=== PATIENT | female | born 1935 | race Caucasian/White ===

== ENCOUNTER 2016-07-12 10:54 | Inpatient (IN) | payer MEDICARE, OTHER ==
[~2016-07-12] VITALS: Ht 170.2 cm; Wt 51.3 kg
[~2016-07-12 10:54] MED LIST: ALLEGRA-D 1212 HOUR PO; ASPIRIN81 MG OR; AUGMENTIN875 MG OR; CALCIUM500 M6 PO; COUMADIN7.5 MG PO; FERROUS SULF325 M1 PO; FISH OIL1000 MG OR; FLORASTOR250 MG OR; KEFLEX500 M1 PO; LASIX 40 MG40 MG/TAB PO; LIALDA1.2 GM OR; LOMOTIL2.5 MG PO; LOPRESSOR50 MG PO; MULIT-VITAMI OR; MULTAQ400 MG OR; MULTI VIT PO; MULTIVITAMIN OR; NASONEX50 MCG/AC; OS-CAL 500500 MG OR; PATANASE0.6 %; PREDNISONE10 MG OR; PRILOSEC20 MG OR; PRILOSEC20 MG PO; PROPAFENONE225 MG PO; SERTRALINE50 MG PO; SPIRIVA IN; SYMBICORT1 AE1 IN; SYSTANE OP; VITAMIN B-12500 MC2 PO; VITAMIN B-12500 MCG PO; VITAMIN D400 UNI2 OR; VITAMIN D5000 UNIT PO; WALKER XX; XANAX0.25 MG OR; XARELTO20 MG OR
--- NOTE | 2016-07-12 10:54 | NUR ---
PT TO ROOM 14 VIA STRETCHER BY EMS. CALL LIGHT WITHIN REACH.
[2016-07-12 13:12] LABS: HEMATOCRIT 32.5 % (37.0-47.0); HEMOGLOBIN 10.2 g/dl (12.0-16.0); IMMATURE GRANULOCYTES 1.2 % (0.0-1.0); MEAN CELL VOLUME 107.3 fL CALC (80.0-100.0); MEAN CORPUSCULAR HGB 33.7 pG CALC (26.0-32.0); MEAN CORPUSCULAR HGB CONC 31.4 g/L CALC (32.0-36.0); NEUT# 5.19 thou/uL (2.00-7.15); RED BLOOD COUNT 3.03 mill/uL (4.20-5.60); RED CELL DISTRI WIDTH 13.5 % (11.5-15.5)
--- NOTE | 2016-07-12 13:15 | NUR ---
PT WITH IV ESTABLISHED WITH DIFFICULTY, BLOOD DRAWN, URINE COLLECTED FROM UROSTOMY BAG. VISITORS AT BEDSIDE.
[2016-07-12] MEDS ORDERED: ELIQUIS2.5 MG PO (13:22)
[2016-07-12] MEDS ORDERED: AMLODIPINE5 MG PO (13:22)
[2016-07-12] MEDS ORDERED: SPIRIVA HANDIHALER IN (13:23)
[2016-07-12] MEDS ORDERED: ADVAIR DISK1 IN (13:23)
[2016-07-12] MEDS ORDERED: PRESERVISION AREDS PO (13:24)
[2016-07-12] MEDS ORDERED: PERCOCET 5/325M1 TAB PO (13:25)
[2016-07-12] MEDS ORDERED: VOLTAREN3% GEL TOP (13:26)
[2016-07-12 13:33] LABS: ALBUMIN 4.1 g/dL (3.2-5.0); BILIRUBIN, TOTAL 0.7 mg/dL (0.0-1.4); CALCIUM 9.6 mg/dL (8.4-10.2); CREATININE 1.2 mg/dL (0.5-1.0); POTASSIUM 3.8 mmol/l (3.5-5.1); TOTAL PROTEIN 7.9 g/dL (6.3-8.2)
--- NOTE | 2016-07-12 14:28 | NUR ---
SBAR PRINTED TO FLOOR
--- NOTE | 2016-07-12 16:20 | NUR ---
Admission Note Report Given to: SBAR PRINTED TO FLOOR Transported by: Wheelchair X Stretcher Transported with: X Nurse Transporter X Patent IV O2 X Link Assembler
--- NOTE | 2016-07-12 16:30 | NUR ---
FROM ER VIA STRETCHER ACCOMPANIED BY CAREGIVER AND PHILIPPE RN. PT AMBULATED TO BED WITH STEADY GAIT. RESPS EVEN AND UNLABORED ON ROOM AIR, TELE MONITOR IN PLACE. UROSTOMY PATENT, DRAINING CLEAR YELLOW URINE. ORIENTED TO ROOM AND CALL SYSTEM. SAFETY PRECAUTIONS REINFORCED. BED IN LOWEST POSITION WITH WHEELS LOCKED. CALL LIGHT WITHIN REACH. WILL CONTINUE TO MONITOR.
--- NOTE | 2016-07-12 16:40 | NUR ---
DR MCLEAN IN TO SEE PT, NEW ORDERS RECEIVED.
[2016-07-12 17:03] VITALS: BP 166/74
[2016-07-12 19:55] VITALS: BP 108/52
--- NOTE | 2016-07-12 21:20 | NUR ---
PT RESTING IN SEMI FOWLERS POSITION WITH FAMILY AT BEDSIDE;IV SITE TO LEFT FOREARM FLUSHED AND PATENT;TELE MONITOR IN PLACE READING PACED 70;NASAL SWAB COMPLETED FOR RULEOUT HX OF MRSA;CONTACT PRECAUTIONS IN PLACE;UROSTOMY IN PLACE AND HANDING TO GRAVITY;ASSESSMENT COMPLETED;PT RE-ORIENTED TO ROOM AND CALL LIGHT SYSTEM;SAFETY PRECAUTIONS REINFORCED;PT DENIES ANY OTHER NEEDS AT THIS TIME;BED IN LOWEST POSITION WITH CALL LIGHT IN REACH;WILL CONTINUE TO MONITOR
[2016-07-13 00:05] VITALS: BP 122/66
--- NOTE | 2016-07-13 01:00 | NUR ---
PT APPEARS TO BE SLEEPING IN SEMI FOWLERS POSITION;TELE MONITOR IN PLACE;NO S/S OF DISTRESS NOTED;RESPIRATIONS EVEN AND UNLABORED ON RA;BED IN LOWEST POSITION WITH CALL LIGHT IN REACH;WILL CONTINUE TO MONITOR
[2016-07-13 03:40] VITALS: BP 141/71
--- NOTE | 2016-07-13 06:00 | NUR ---
PT RESTING IN SEMI FOWLERS POSITION;PT DENIES ANY PAIN OR DISCOMFORTS;RESPIRATIONS EVEN AND UNLABORED ON RA;IV SITE FOUND OCCULDED AT THIS TIME;SITE REMOVED WITH CATHETER INTACT;NEW #22 STARTED TO LEFT FOREARM BY PRASAD FORD;UROSTOMY NOTED HANGING TO GRAVITY WITH LEG STRAP IN PLACE;TELE MONITOR IN;PT DENIES ANY OTHER NEEDS AT THIS TIME;BED IN LOWEST POSITION WITH CALL LIGHT IN REACH;WILL CONTINUE TO MONITOR
--- NOTE | 2016-07-13 07:00 | NUR ---
RECEIVED BEDSIDE REPORT FROM ARINA DE LA ROSA. RESTING IN BED ON LEFT SIDE WITH EYES CLOSED, AWAKENS EASILY. RESPS EVEN AND UNLABORED ON ROOM AIR, TELE MONITOR IN PLACE. UROSTOMY PATENT, DRAINING CLEAR YELLOW URINE TO BEDSIDE BAG, STRAP TO UPPER RIGHT LEG. DENIES PAIN OR DISCOMFORT. PLAN OF CARE DISCUSSED. SAFETY PRECAUTIONS REINFORCED. BED IN LOWEST POSITION WITH WHEELS LOCKED. CALL LIGHT WITHIN REACH. WILL CONTINUE TO MONITOR.
[2016-07-13 07:01] LABS: HEMATOCRIT 32.5 % (37.0-47.0); HEMOGLOBIN 10.3 g/dl (12.0-16.0); IMMATURE GRANULOCYTES 0.5 % (0.0-1.0); MEAN CELL VOLUME 106.2 fL CALC (80.0-100.0); MEAN CORPUSCULAR HGB 33.7 pG CALC (26.0-32.0); MEAN CORPUSCULAR HGB CONC 31.7 g/L CALC (32.0-36.0); NEUT# 3.47 thou/uL (2.00-7.15); RED BLOOD COUNT 3.06 mill/uL (4.20-5.60); RED CELL DISTRI WIDTH 13.4 % (11.5-15.5)
[2016-07-13 07:24] LABS: CALCIUM 9.6 mg/dL (8.4-10.2); CREATININE 1.4 mg/dL (0.5-1.0); POTASSIUM 3.6 mmol/l (3.5-5.1)
[2016-07-13 08:02] VITALS: BP 128/48
[2016-07-13 12:30] VITALS: BP 125/49
--- NOTE | 2016-07-13 13:19 | NUR ---
SITTING IN BEDSIDE CHAIR. DAUGHTER AT BEDSIDE. RESPS EVEN AND UNLABORED ON ROOM AIR, TELE MONITOR IN PLACE. C/O HEARTBURN, REQUESTS TUMS. MEDICATED WITH MYLANTA FOR RELIEF. CALL LIGHT WITHIN REACH. WILL CONTINUE TO MONITOR.
--- NOTE | 2016-07-13 14:08 | NUR ---
DR MCLEAN IN TO SEE PT, NEW ORDERS RECEIVED.
[2016-07-13] MEDS ORDERED: FLORASTOR250 M1 PO (14:37)
[2016-07-13] MEDS ORDERED: ZITHROMAX500 MG PO (14:37)
[2016-07-13] MEDS ORDERED: PREDNISONE10 MG PO (14:37)
--- NOTE | 2016-07-13 15:55 | NUR ---
Discharge instructions given. Patient verbalizes understanding of same. Discharged in stable condition via Wheelchair to Home with family. All belongings sent with pt.
== END 2016-07-13 15:52 | disposition home or self-care (01) | DRG 192 ==
LOC: ENPENDDIS → ED 10:54 → ED-I 14:00 → ED 14:20 → MS2 14:21
PROVIDERS: Emergency Medicine; ADMIT Internal Medicine; ATTEND Internal Medicine
DX: J44.9 Chronic obstructive pulmonary disease, unspecified (principal); J84.9 Interstitial pulmonary disease, unspecified; I48.91 Unspecified atrial fibrillation; Z93.6 Other artificial openings of urinary tract status; N18.9 Chronic kidney disease, unspecified; M19.90 Unspecified osteoarthritis, unspecified site; Z90.5 Acquired absence of kidney; Z95.0 Presence of cardiac pacemaker; Z85.89 Personal history of malignant neoplasm of other organs and systems; Z87.891 Personal history of nicotine dependence; Z92.21 Personal history of antineoplastic chemotherapy; Z92.3 Personal history of irradiation

== ENCOUNTER 2017-05-14 09:14 | Inpatient (IN) | payer MEDICARE, OTHER ==
[~2017-05-14] VITALS: Ht 172.7 cm; Wt 45.0 kg
[~2017-05-14 09:14] MED LIST changes: +ADVAIR DISK1 IN; +AMLODIPINE5 MG PO; +ELIQUIS2.5 MG PO; +FLORASTOR250 M1 PO; +PERCOCET 5/325M1 TAB PO; +PREDNISONE10 MG PO; +PRESERVISION AREDS PO; +SPIRIVA HANDIHALER IN; +VOLTAREN3% GEL TOP; +ZITHROMAX500 MG PO
--- NOTE | 2017-05-14 09:31 | NUR ---
PT TO ROOM FOR EXAM
--- NOTE | 2017-05-14 09:45 | NUR ---
CRACKLED AUSCULTATED BILATERAL LOWER LOBES OF LUNDS. DENIES ANY HISTORY OF HEART FAILURE.
--- NOTE | 2017-05-14 10:30 | NUR ---
URINE SAMPLE COLLECTED FROM UROSTOMY.
[2017-05-14 10:32] LABS: HEMATOCRIT 33.3 % (37.0-47.0); HEMOGLOBIN 10.4 g/dl (12.0-16.0); IMMATURE GRANULOCYTES 0.4 % (0.0-1.0); MEAN CORPUSCULAR HGB 32.8 pG CALC (26.0-32.0); MEAN CORPUSCULAR HGB CONC 31.2 g/L CALC (32.0-36.0); NEUT# 9.11 thou/uL (2.00-7.15); RED BLOOD COUNT 3.17 mill/uL (4.20-5.60); RED CELL DISTRI WIDTH 14.5 % (11.5-15.5)
[2017-05-14] MEDS ORDERED: LISINOPRIL2.5 MG PO (10:45)
[2017-05-14 10:47] LABS: INTERNATIONAL NORMALIZED RATIO 1.1 RATIO (0.7-1.3); PROTHROMBIN TIME 12.3 SECONDS (9.0-12.5)
[2017-05-14] MEDS ORDERED: XANAX0.5 MG PO (10:48)
[2017-05-14 10:52] LABS: ALBUMIN 4.2 g/dL (3.2-5.0); BILIRUBIN, TOTAL 0.9 mg/dL (0.0-1.4); CREATININE 1.3 mg/dL (0.5-1.0); INFLUENZA A NONE DETECTED (NONE DETECT); INFLUENZA B NONE DETECTED (NONE DETECT); POTASSIUM 2.8 mmol/l (3.5-5.1); TOTAL PROTEIN 7.7 g/dL (6.3-8.2)
[2017-05-14 11:19] LABS: URINE BILIRUBIN - DIPSTICK NEGATIVE (NEGATIVE); URINE BLOOD DIPSTICK NEGATIVE (NEGATIVE); URINE COLOR YELLOW; URINE GLUCOSE - DIPSTICK NEGATIVE (NEGATIVE); URINE KETONE NEGATIVE (NEGATIVE); URINE PH >=9.0 (4.5-8.0); URINE PROTEIN - DIPSTICK 100 mg/dL (NEG-TRACE); URINE SPECIFIC GRAVITY <=1.005; URINE UROBILINOGEN - DIPSTICK 0.2 E.U./dL (0.2)
[2017-05-14 11:20] LABS: URINE LEUK ESTERASE SMALL (NEGATIVE); URINE NITRITE - DIPSTICK POSITIVE (Negative)
[2017-05-14 11:21] LABS: URINE CLARITY CLOUDY
[2017-05-14 11:31] LABS: URINE BACTERIA MANY hpf; URINE SQUAMOUS EPITHELIAL CELL FEW EPI/hpf (0-FEW)
--- NOTE | 2017-05-14 11:35 | NUR ---
ASIA REPORTS HAVING A HISTORY OF C-DIFF.
--- NOTE | 2017-05-14 11:55 | NUR ---
REPORT GIVE TO PRASAD CISNEROS.
--- NOTE | 2017-05-14 12:14 | NUR ---
Admission Note Report Given to: SBAR PRINTED TO FLOOR Transported by: Wheelchair X Stretcher Transported with: X Nurse Transporter X Patent IV O2 Marine Meteorologist
--- NOTE | 2017-05-14 12:16 | NUR ---
PT ARRIVED TO FLOOR VIA STRETCHER ACCOMPANIED BY PRASAD MILLER. PT SITTING IN SEMIFOWLERS POSITION. STATES "DONT I NEED OXYGEN?" O2 SAT 86 % ON RA. O2 @ 2L VIA NC APPLIED TO PT. SAT NOW 92%. PT DENIES USE OF O2 AT HOME. DENIES PAIN. PT ORIENTED TO ROOM AND EQUIPMENT. PT REPORTS VISUAL IMPAIRMENT, LEGALLY BLIND. SIGN PLACED ABOVE BED. STICKERS APPLIED TO CALL LIGHT AND BED CONTROLS TO FACILITATE USE. PLAN OF CARE DISCUSSED. PT EDUCATED ON ABX THERAPY. ATTMEPTED TO CONVERT UROSTOMY BAG TO BEDSIDE DRAINAGE BAG PER PT REQUEST. EQUIPMENT NOT COMPATIBLE. AWAITING CONNECTOR PIECE TO BE BROUGHT BY PT'S [employer]. PT STATES UNDERSTANDING OF INFORAMTION REVIEWED. PT'S SON AT BEDSIDE.
--- NOTE | 2017-05-14 12:25 | NUR ---
PATIENT TRANSPORTED TO [facility] VIA STRETCHER. ZITHROMAX 500 MG GIVEN TO PRASAD CISNEROS AND INFORMED OF NO TELE MONITOR ORDER. CARE RELINQUISHED TO PRASAD CISNEROS.
[2017-05-14 12:49] VITALS: BP 156/68
--- NOTE | 2017-05-14 13:49 | NUR ---
Drug Selected: Vancomycin Age: 82 years Weight: 45 kg Height: 67 in Gender: Female SCR: 1.3 mg/dl Dosing weight: 45 kg IBW: 61.60 kg CRCL (ml/min): 22.9 Adriano (hr-1): 0.023 Half-life (hrs): 30.14 Vd (liters): 31.50 (factor: 0.7 L/kg) Give Vancomycin 750 mg q48 hrs WILL FOLLOW SCR AND ADJUST DOSE ACCORDINGLY ZOSYN DOSED BASED ON CRCL OF 22.9
--- NOTE | 2017-05-14 15:18 | NUR ---
PT REPORTS CHILLS, TEMP 99.6, INCREASED BY 2 POINTS FROM ARRIVAL TO FLOOR. WILL CONTINUE TO MONITOR FOR FEVER.
[2017-05-14 15:50] VITALS: BP 163/67
--- NOTE | 2017-05-14 15:50 | NUR ---
TEMP NOW 100.6. REPORTS SEVERE NECK AND BACK PAIN ALSO. DR. SANFORD NOTIFIED. TORADOL IV X 1 ORDERED.
--- NOTE | 2017-05-14 17:39 | NUR ---
TEMP NOW 98.7. PT REPORTS RELIEF OF NECK AND BACK PAIN. EATING DINNER.
--- NOTE | 2017-05-14 18:50 | NUR ---
RECEIVED CHANGE OF SHIFT REPORT FROM PRASAD CISNEROS. PATIENT LYNG IN BED AND APPEARS TO BE IN NO APPARENT ACUTE DISTRESS. PT'S STATES SHE IS LEGALLY BLIND. DENIES PAIN. WILL CONTIMUE TO MONITOR.
[2017-05-14 20:57] VITALS: BP 129/65
--- NOTE | 2017-05-15 | NUR ---
PATIENT RESTING QUIETLY. NO APPARENT ACUTE DISTRESS NOTED. WILL CONTINUE TO MONITOR.
[2017-05-15 03:45] VITALS: BP 128/71
--- NOTE | 2017-05-15 04:00 | NUR ---
NO APPARENT ACUTE CHANGES NOTED IN PT'S CONDITION
[2017-05-15 05:32] LABS: HEMOGLOBIN 8.3 g/dl (12.0-16.0); IMMATURE GRANULOCYTES 0.4 % (0.0-1.0); MEAN CELL VOLUME 104.4 fL CALC (80.0-100.0); MEAN CORPUSCULAR HGB 33.3 pG CALC (26.0-32.0); MEAN CORPUSCULAR HGB CONC 31.9 g/L CALC (32.0-36.0); NEUT# 6.72 thou/uL (2.00-7.15); RED BLOOD COUNT 2.49 mill/uL (4.20-5.60); RED CELL DISTRI WIDTH 14.2 % (11.5-15.5)
[2017-05-15 06:16] LABS: ALBUMIN 2.7 g/dL (3.2-5.0); BILIRUBIN, TOTAL 0.7 mg/dL (0.0-1.4); CREATININE 1.2 mg/dL (0.5-1.0); TOTAL PROTEIN 5.5 g/dL (6.3-8.2)
--- NOTE | 2017-05-15 07:00 | NUR ---
RECEIVED BEDSIDE REPORT FROM SARAH PARHAM. RESTING IN BED WITH EYES CLOSED, AWAKENS EASILY. RESPS EVEN AND UNLABORED ON O2 VIA NC. REPORTS PAIN 7/10 IN BACK AND NECK, WILL MEDICATE PER JUN. UROSTOMY PATENT, DRAINING LIGHT YELLOW URINE, NO REDNESS OR EDEMA NOTED. PLAN OF CARE DISCUSSED. SAFETY PRECAUTIONS REINFORCED. BED IN LOWEST POSITION WITH WHEELS LOCKED. CALL LIGHT WITHIN REACH. WILL CONTINUE TO MONITOR.
[2017-05-15 07:36] VITALS: BP 127/71
--- NOTE | 2017-05-15 09:55 | NUR ---
RESTING IN HIGH FOWLERS, FAMILY AT BEDSIDE. RESPS EVEN AND UNLABORED ON O2 VIA NC. MEDICATED WITH LORTAB PO FOR C/O 7/10 BACK AND NECK PAIN. REPOSITIONED IN BED FOR COMFORT. CALL LIGHT WITHIN REACH. WILL CONTINUE TO MONITOR.
--- NOTE | 2017-05-15 10:00 | NUR ---
PT ASSESSMENT COMPLETED. PT A&O X3. HEART SOUNDS WERE IRREGULAR. PACEMAKER IN PLACE. LUNG SOUNDS WERE DIMINISHED IN ALL LOBES, SHE SEEMS TO HAVE LITTLE AIR MOVEMENT THROUGHOUT LUNGS. PT IS ON 02 NC @2L, SATS ARE 98% WITH NO DIFFICULTY BREATHING OR SIGNS OF DISTRESS. PULSES WERE STRONG IN EXTREMITIES. SKIN ACYANOTIC, WARM/DRY, WITH NON-ELASTIC TURGOR. PT STATES SHE IS LEGALLY BLIND. PT HAS A UROSTOMY IN LOWER RIGHT QUADRANT. SITE IS FREE OF REDNESS AND EDEMA. PT REPORTS PAIN OF 7/10 IN NECK AND BACK. NURSE MOHAMUD MICHELLE NOTIFIED AND PT WAS MEDICATED.
--- NOTE | 2017-05-15 10:45 | NUR ---
MEDICATED WITH ZOFRAN ODT FOR C/O NAUSEA. FAMILY AT BEDSIDE. WILL CONTINUE TO MONITOR. CALL LIGHT WITHIN REACH.
[2017-05-15 11:45] VITALS: BP 113/63
[2017-05-15 13:19] LABS: CHOLESTEROL HDL RATIO 2.1 (<4.4 (CALC)); MAGNESIUM 1.4 mg/dL (1.6-2.3)
--- NOTE | 2017-05-15 13:38 | NUR ---
Vaccines patient's flu vaccine will be held until their primary infection is cleared.
--- NOTE | 2017-05-15 13:55 | NUR ---
Drug Selected: Vancomycin Age: 82 years Weight: 45 kg Height: 68 in Gender: Female SCR: 1.2 mg/dl Calculated Values: Dosing weight: 45 kg IBW: 63.90 kg CRCL (ml/min): 24.8 Adriano (hr-1): 0.025 Half-life (hrs): 27.73 Vd (liters): 33.75 (factor: 0.75 L/kg) Final Report: Give Vancomycin 500 mg q24 hrs RANDOM LEVEL DRAWN @1200 ON 05/15/17= 6 WE WILL INCREASE THE DOSE TO 500MG Q24H NEXT TROUGH WILL BE 05/17/17 @1400
[2017-05-15 15:18] VITALS: BP 117/65
--- NOTE | 2017-05-15 16:28 | NUR ---
IN SEMI FOWLERS TALKING ON TELEPHONE. RESPS EVEN AND UNLABORED ON O2 VIA NC. #20 LAC INFUSING WITHOUT DIFFICULTY, SITE APPEARS HEALTHY. VOICES NO NEEDS AT THIS TIME. CALL LIGHT WITHIN REACH.
[2017-05-15 18:45] VITALS: BP 123/67
--- NOTE | 2017-05-15 19:10 | NUR ---
REPORT RECEIVED FROM PRASAD MALLORY;PT RESTING IN SUPINE POSITION WATCHING TV;RESPIRATIONS APPEAR EVEN AND UNLABORED ON OXYGEN;INTRODUCED SELF TO PT AND POC DISCUSSED;PT DENIES ANY NEEDS AT THIS TIME;FALL PRECAUTIONS IN PLACE WITH CALL LIGHT IN REACH;WILL CONTINUE TO MONITOR
--- NOTE | 2017-05-15 21:00 | NUR ---
CONTACT PRECAUTIONS IN PLACE FOR HX OF MRSA;PT RESTING IN SEMI FOWLERS POSITION;ASSESSMENT COMPLETED;RESPIRATIONS EVEN AND UNLABORED ON OXYGEN @ 2L VIA NC,PT IS NOTED TO BE HOME DEPENDENT;LUNG SOUNDS DIMINISHED;A&O X3;WEAK PEDAL PULSES;UROSTOMY PATENT WITH PINK STOMA DRAINING CLEAR/YELLOW URINE;#20G TO LAC FLUSHED AND PATENT,SITE APPEARS HEALTHY;SKIN INTACT;FALL PRECAUTIONS IN PLACE WITH BED IN THE LOWEST POSITION;PT DENIES ANY NEEDS AT THIS TIME;ENCOURAGED PT TO CALL FOR ASSISTANCE IF NEEDED;PO FLUIDS ALSO ENCOURAGED;CALL LIGHT IN REACH;WILL CONTINUE TO MONITOR
--- NOTE | 2017-05-16 | NUR ---
PT APPEARS TO BE SLEEPING IN SUPINE POSITION;CONTACT PRECAUTIONS IN PLACE FOR HX OF MRSA;RESPIRATIONS EVEN AND UNLABORED ON 02 @ 2L;FALL PRECAUTIONS IN PLACE WITH BED IN THE LOWEST POSITION;CALL LIGHT IN REACH;WILL CONTINUE TO MONITOR
--- NOTE | 2017-05-16 03:50 | NUR ---
PT RESTING IN SUPINE POSITION THIS MORNING;PT REPORTS A GOOD NIGHTS SLEEP;RESPIRATIONS EVEN AND UNLABORED ON 02 @ 2L;PT DENIES ANY PAIN OR DISCOMFORTS;CONTACT PRECAUTIONS IN PLACE;FALL PRECAUTIONS NOTED WITH CALL LIGHT IN REACH;FRESH WATER PROVIDED;CALL LIGHT IN REACH;WILL CONTINUE TO MONITOR
[2017-05-16 04:45] VITALS: BP 124/65
[2017-05-16 05:24] LABS: HEMATOCRIT 27.3 % (37.0-47.0); HEMOGLOBIN 8.6 g/dl (12.0-16.0); IMMATURE GRANULOCYTES 0.5 % (0.0-1.0); MEAN CELL VOLUME 104.2 fL CALC (80.0-100.0); MEAN CORPUSCULAR HGB 32.8 pG CALC (26.0-32.0); MEAN CORPUSCULAR HGB CONC 31.5 g/L CALC (32.0-36.0); NEUT# 5.63 thou/uL (2.00-7.15); RED BLOOD COUNT 2.62 mill/uL (4.20-5.60); RED CELL DISTRI WIDTH 13.8 % (11.5-15.5)
[2017-05-16 05:53] LABS: CREATININE 1.2 mg/dL (0.5-1.0); MAGNESIUM 1.6 mg/dL (1.6-2.3); POTASSIUM 3.7 mmol/l (3.5-5.1)
--- NOTE | 2017-05-16 07:00 | NUR ---
RECEIVED BEDSIDE REPORT FROM ARINA DE LA ROSA. RESTING IN BED WITH EYES CLOSED, AWAKENS EASILY. RESPS EVEN AND UNLABORED ON O2 VIA NC. DEBIES PAIN OR DISCOMFORT. PLAN OF CARE DISCUSSED. SAFETY PRECAUTIONS REINFORCED. BED IN LOWEST POSITION WITH WHEELS LOCKED. CALL LIGHT WITHIN REACH. WILL CONTINUE TO MONITOR.
[2017-05-16 08:45] VITALS: BP 125/57
--- NOTE | 2017-05-16 10:26 | NUR ---
MEDICATED WITH ZOFRAN ODT FOR C/O NAUSEA.
--- NOTE | 2017-05-16 12:00 | NUR ---
IN HIGH FOWLERS EATING LUNCH. SON AT BEDSIDE. RESPS EVEN AND UNLABORED ON O2 VIA NC. DENIES PAIN OR DISCOMFORT. CALL LIGHT WITHIN REACH. WILL CONTINUE TO MONITOR.
--- NOTE | 2017-05-16 14:00 | NUR ---
PHYSICAL THERAPY IN WITH PT.
--- NOTE | 2017-05-16 14:36 | NUR ---
OCCUPATIONAL THERAPY IN WITH PT.
[2017-05-16 15:39] VITALS: BP 139/65
--- NOTE | 2017-05-16 16:00 | NUR ---
RESTING IN SEMI FOWLERS, RESPS EVEN AND UNLABORED ON O2 VIA NC. #20 LAC INFUSING WITHOUT DIFFICULTY, SITE APPEARS HEALTHY. UROSTOMY PATENT DRAINING TARYN COLORED URINE TO GRAVITY, NO RENESS OR EDEMA NOTED. VOICES NO NEEDS AT THIS TIME. CALL LIGHT WIHTIN REACH. WILL CONTINUE TO MONITOR.
[2017-05-16 19:15] VITALS: BP 133/68
--- NOTE | 2017-05-16 19:15 | NUR ---
REPORT RECEIVED FROM PRASAD MALLORY;PT RESTING IN SUPIN POSITION;CONTACT PRECAUTIONS IN PLACE FOR MRSA;INTRODUCED SELF TO PT AND POC DISCUSSED;PT DENIES ANY NEEDS AT THIS TIME;SAFETY PRECAUTIONS REINFORCED;CALL LIGHT IN REACH;WILL CONTINUE TO MONITOR
--- NOTE | 2017-05-16 20:15 | NUR ---
PT RESTING IN SEMI FOWLERS POSITION WATCHING TV;A&OX3;ASSESSMENT COMPLETED;RESPIRATIONS EVEN AND UNLABORED ON O2 @ 2L VIA NC,DIMINISHED LUNG SOUNDS NOTED;ABDOMEN SOFT UPON PALPATION;WEAK PEDAL PULSES NOTED WITH HEEL PROTECTORS IN PLACE;UROSTOMY PATENT WITH PINK STOMA DRAINING CLOUDY/YELLOW URINE;#20G TO LAC FLUSHED AND PATENT;GENERALIZED BRUISING NOTED THROUGHOUT BODY;LAST BM 05/11/17,GLYCERNIN SUP GIVEN AT THIS TIME;PT DENIES ANY PAIN OR NEEDS;SAFETY PRECAUTIONS REINFORCED WITH BED IN THE LOWEST POSITION;CALL LIGHT IN REACH;WILL CONTINUE TO MONITOR
--- NOTE | 2017-05-16 22:00 | NUR ---
PT HAD A SMALL/LIQUID BROWN BM,SAMPLE SENT TO LAB AT THIS TIME
--- NOTE | 2017-05-16 23:50 | NUR ---
PT APPEARS TO BE SLEEPING IN SUPINE POSITION;WOKE PT TO ADMINISTER SCHEDULED MEDICATION;IV SITE TO LAC FOUND OCCLUDED;SITE REMOVED WITH CATHETER INTACT;NEW #22G STARTED TO RIGHT FOREARM, FLUSHED AND PATENT;PT DENIES ANY NEEDS AT THIS TIME;FRESH WATER PROVIDED;FALL PRECAUTIONS IN PLACE WITH CALL LIGHT IN REACH;WILL CONTINUE TO MONITOR
--- NOTE | 2017-05-17 04:15 | NUR ---
PT APPEARS TO BE SLEEPING IN SEMI FOWLERS POSITION;NO S/S OF DISTRESS NOTED;RESPIRATIONS EVEN AND UNLABORED ON 02 @ 2L VIA NC;CONTACT AND FALL PRECAUTIONS IN PLACE;BED IN THE LOWEST POSITION WITH CALL LIGHT IN REACH;WILL CONTINUE TO MONITOR
[2017-05-17 04:29] VITALS: BP 139/77
--- NOTE | 2017-05-17 08:05 | NUR ---
ASSESSMENT IS COMPLETED: IV SITE IS FREE FROM REDNESS OR EDEMA. O2 @ 2LITERS WITH NC. CARTWRIGHT DRAINING CLEAR YELLOW URINE. BREATH SOUNDS ARE DIMINSHED. AND CLEAR. CONTINUE TO OSBERVE AND MONITOR.
[2017-05-17 08:31] VITALS: BP 153/83
--- NOTE | 2017-05-17 10:00 | NUR ---
PT REFUSED PHYSICAL THERAPY. STATES THAT SHE ONLY WANTED TO STAY IN BED AND REST.
--- NOTE | 2017-05-17 10:35 | NUR ---
PT REPORTS NAUSEA. ZOFRAN PO ADMINISTERED PER ORDER. WILL CONTINUE TO MONITOR.
[2017-05-17] MEDS ORDERED: COLACE100 MG PO (11:05)
[2017-05-17] MEDS ORDERED: MIRALAX3350 N1 PO (11:11)
[2017-05-17 11:47] LABS: HEMATOCRIT 31.3 % (37.0-47.0); HEMOGLOBIN 9.8 g/dl (12.0-16.0); MEAN CELL VOLUME 106.1 fL CALC (80.0-100.0); MEAN CORPUSCULAR HGB 33.2 pG CALC (26.0-32.0); MEAN CORPUSCULAR HGB CONC 31.3 g/L CALC (32.0-36.0); RED BLOOD COUNT 2.95 mill/uL (4.20-5.60)
[2017-05-17 12:07] LABS: CREATININE 1.2 mg/dL (0.5-1.0); POTASSIUM 3.8 mmol/l (3.5-5.1)
--- NOTE | 2017-05-17 12:30 | NUR ---
PT HAS BEEN RELAXING IN BED WITH NO DISTRESS NOTED. IV SITE IS FREE FROM REDNESS OR EDEMA. CONTINUE TO OSBERVE AND MONITOR.
--- NOTE | 2017-05-17 15:19 | NUR ---
Vancomycin consult Weight: 45 Kilograms Vancomycin single level analysis: Current dose being given: 500 mg Current dosing interval: 24 hrs Current infusion time (hrs): 2 Single level Trough Data: Trough level obtained: 9 mcg/ml Timing of trough - Number of hours before next dose: 0.5 Hrs Estimated PK Parameters: New rate constant (osmany): 0.043 hr-1 New half-life: 16.12 Hours New Vd from levels: 31.50 Liters (0.7 L/kg) Give Vancomycin 750 mg Q24H Infuse over 2 hrs Expected Cpeak: 35 mcg/ml Expected Ctrough: 15 mcg/ml
--- NOTE | 2017-05-17 15:41 | NUR ---
Josiah lindquist'clarence O.T. treatment and O.T. maintained contact precautions and instructed patient in UE HEP strengthening program. Patient declined sitting up or getting out of bed with max encouragement and reported "having a lot on my mind." Patient did not verbalize what was on her mind and O.T. offered support. Patient demonstrated UE HEP with supervision bed level. Patient agreed for O.T. treatment tomorrow.
[2017-05-17 15:45] VITALS: BP 138/72
--- NOTE | 2017-05-17 16:09 | NUR ---
PT IS WORKING WITH OT IN THE BED. NO DISTRESS NOTED. IV SITE IS FREE FROM REDNESS OR EDEMA.CONTINUE TO OBSERVE AND MONITOR.
--- NOTE | 2017-05-17 19:15 | NUR ---
REPORT RECEIVED FROM RJ RICHARDS;PT APPEARS TO BE SLEEPING IN SEMI FOWLERS POSITION;NO S/S OF DISTRESS NOTED;FALL PRECAUTIONS IN PLACE WITH BED IN THE LOWEST POSITION;CALL LIGHT IN REACH;WILL CONTINUE TO MONITOR
[2017-05-17 20:00] VITALS: BP 135/69
--- NOTE | 2017-05-17 21:10 | NUR ---
PT RESTING IN BED WATCHING TV;CONTACT PRECAUTIONS IN PLACE FOR MRSA;A&O X3;ASSESSMENT COMPLETED;RESPIRATIONS EVEN AND UNLABORED ON 02 @ 2L VIA NC;DIMINISHED LUNG SOUNDS;PT REPORTS FEELING BETTER TODAY AND NOT REQUIRING HER O2 MUCH;ABDOMEN SOFT;STRONG PEDAL PULSES;UROSTOMY PATENT WITH PINK STOMA DRAINING CLOUDY/YELLOW URINE;SKIN INTACT;#22G TO RIGHT FOREARM FLUSHED AND PATENT;WARM PRUNE JUICE PROVIDED;PT DENIES ANY PAIN OR NEEDS AT THIS TIME;SAFETY PRECAUTIONS REINFORCED;PT ENCOURAGED TO CALL FOR ASSISTANCE IF NEEDED;CALL LIGHT IN REACH;WILL CONTINUE TO MONITOR
--- NOTE | 2017-05-18 00:30 | NUR ---
PT APPEARS TO BE SLEEPING WITH EYES CLOSED;WOKE PT TO ADMINISTER SCHEDULED MEDICATION;PT VOICES NO COMPLAINTS OF PAIN;RESPIRATIONS EVEN AND UNLABORED ON OXYGEN;FALL PRECAUTIONS IN PLACE;CALL LIGHT IN REACH;WILL CONTINUE TO MONITOR
[2017-05-18 04:48] VITALS: BP 142/70
[2017-05-18 04:56] LABS: HEMATOCRIT 27.5 % (37.0-47.0); HEMOGLOBIN 8.4 g/dl (12.0-16.0); IMMATURE GRANULOCYTES 0.5 % (0.0-1.0); MEAN CELL VOLUME 105.8 fL CALC (80.0-100.0); MEAN CORPUSCULAR HGB 32.3 pG CALC (26.0-32.0); MEAN CORPUSCULAR HGB CONC 30.5 g/L CALC (32.0-36.0); NEUT# 6.39 thou/uL (2.00-7.15); RED BLOOD COUNT 2.6 mill/uL (4.20-5.60); RED CELL DISTRI WIDTH 14.1 % (11.5-15.5)
--- NOTE | 2017-05-18 05:00 | NUR ---
PT RESTING IN BED REPORTING BM;UPON ASSESSMENT PT HAD A VERY LARGE/BROWN LOOSE BM;TL CARE PROVIDED;VS OBTAINED;RESPIRATIONS EVEN AND UNLABORED ON RA;PT ENCOURAGED TO CALL FOR ASSISTANCE IF NEEDED;FALL PRECAUTIONS IN PLACE;WILL CONTINUE TO MONITOR
[2017-05-18 05:09] LABS: CREATININE 1.3 mg/dL (0.5-1.0); MAGNESIUM 1.7 mg/dL (1.6-2.3); POTASSIUM 3.8 mmol/l (3.5-5.1)
[2017-05-18 08:36] VITALS: BP 152/68
--- NOTE | 2017-05-18 08:37 | NUR ---
PHYSICAL THERAPY IN WITH PT;
--- NOTE | 2017-05-18 09:19 | NUR ---
Patient found resting in bed, explained treatment plan and in agreement to paticipate in functional activities of transfer training. Patient provided with pericare prior to treatment by FLEET SERVICE CLERK. Gait belt and footwear applied prior to transfers. Patient transfered supine to side ly to sit using bedrails to assist and supervision. Good static sitting balance noted. Intructed patient on use of UE's for push off from bed to come to stand to rollator of which she proceeded to do so with light CGA x1. Verbal cues followed with 100% accuracy. 2-3 steps taken with rollator and CGA x1 to BSC. Good safety awareness with stand to sit onto BSC and sit to stand from BSC. Patient again took took 3 steps with rollator and light CGA x1 to recliner, recalling to use UE's to slowly lower onto recliner. LE's were elevated, pillows provided for comfort, call light was reviewed of which pt. returned proper use of. Bedside table also left within reach, patient without questions and without concerns after treatment. Nurse informed.
--- NOTE | 2017-05-18 10:26 | NUR ---
DR. MCLEAN IN TO SEE PT; PLAN OF CARE DISCUSSED
[2017-05-18] MEDS ORDERED: FLORASTOR250 M1 PO (13:02)
[2017-05-18] MEDS ORDERED: SUCRALFATE1 GM/10 ML PO (13:02)
[2017-05-18] MEDS ORDERED: AUGMENTIN875TAB PO (13:02)
[2017-05-18] MEDS ORDERED: DOXYCYCL HYC100 MG PO (13:02)
[2017-05-18] MEDS ORDERED: PANTOPRAZOLE SO40 M1 PO (13:02)
[2017-05-18] MEDS ORDERED: TRAMADOL HCL50 MG PO (13:02)
--- NOTE | 2017-05-18 13:04 | NUR ---
PT MEDICATED FOR C/O NECK PAIN AND BACK PAIN 10/24; CALL DUNCAN WITHIN REACH; WILL CONTINUE TO MONITOR.
[2017-05-18] MEDS ORDERED: PREDNISONE10 MG PO (13:05)
--- NOTE | 2017-05-18 15:38 | NUR ---
Attempted to treat patient at 3:30 p.m., however, Josiah Hayden in with patient Discharging her and patient verbalized did not need treatment prior to D/C home.
--- NOTE | 2017-05-18 15:42 | NUR ---
Discharge instructions given. Patient verbalizes understanding of same. Discharged in stable condition via Wheelchair to Home with family. All belongings sent with pt.
== END 2017-05-18 15:30 | DRG 871 ==
LOC: ED 09:14 → ED-I 11:15 → ED 11:34 → MS2 11:35
PROVIDERS: Emergency Medicine; Nurse Practitioner Family; ADMIT Internal Medicine; ATTEND Internal Medicine
DX: A41.9 Sepsis, unspecified organism (principal); E43 Unspecified severe protein-calorie malnutrition; J18.9 Pneumonia, unspecified organism; N17.9 Acute kidney failure, unspecified; J44.0 Chronic obstructive pulmonary disease with (acute) lower respiratory infection; I48.2 Chronic atrial fibrillation; D53.1 Other megaloblastic anemias, not elsewhere classified; N39.0 Urinary tract infection, site not specified; Z68.1 Body mass index [BMI] 19.9 or less, adult; N99.521 Infection of incontinent external stoma of urinary tract; R65.20 Severe sepsis without septic shock; Z99.81 Dependence on supplemental oxygen; I12.9 Hypertensive chronic kidney disease with stage 1 through stage 4 chronic kidney disease, or unspecified chronic kidney disease; N18.3 Chronic kidney disease, stage 3 (moderate); M19.90 Unspecified osteoarthritis, unspecified site; K21.9 Gastro-esophageal reflux disease without esophagitis; M79.7 Fibromyalgia; F32.9 Major depressive disorder, single episode, unspecified; E87.6 Hypokalemia; R19.7 Diarrhea, unspecified; K56.41 Fecal impaction; B96.4 Proteus (mirabilis) (morganii) as the cause of diseases classified elsewhere; Z85.42 Personal history of malignant neoplasm of other parts of uterus; Z95.0 Presence of cardiac pacemaker; Z92.3 Personal history of irradiation; Z87.891 Personal history of nicotine dependence; Z79.01 Long term (current) use of anticoagulants; Z22.322 Carrier or suspected carrier of Methicillin resistant Staphylococcus aureus; Y83.3 Surgical operation with formation of external stoma as the cause of abnormal reaction of the patient, or of later complication, without mention of misadventure at the time of the procedure
CPT/HCPCS: J3370; S0164

== ENCOUNTER 2018-05-23 18:56 | Inpatient (IN) | payer MEDICARE, OTHER ==
[~2018-05-23] VITALS: Ht 170.2 cm; Wt 44.0 kg
[~2018-05-23 18:56] MED LIST changes: +AUGMENTIN875TAB PO; +COLACE100 MG PO; +DOXYCYCL HYC100 MG PO; +LISINOPRIL2.5 MG PO; +MIRALAX3350 N1 PO; +PANTOPRAZOLE SO40 M1 PO; +SUCRALFATE1 GM/10 ML PO; +TRAMADOL HCL50 MG PO; +XANAX0.5 MG PO
[2018-05-23 20:14] LABS: IMMATURE GRANULOCYTES 0.4 % (0.0-5.0); MEAN CELL VOLUME 105.9 fL CALC (80.0-100.0); MEAN CORPUSCULAR HGB 33.8 pG CALC (26.0-32.0); MEAN CORPUSCULAR HGB CONC 31.9 g/L CALC (32.0-36.0); NEUT# 7.96 thou/uL (2.00-7.15); RED BLOOD COUNT 3.37 mill/uL (4.20-5.60); RED CELL DISTRI WIDTH 13.1 % (11.5-15.5)
[2018-05-23 20:16] LABS: HEMATOCRIT 35.7 % (37.0-47.0); HEMOGLOBIN 11.4 g/dl (12.0-16.0)
[2018-05-23 20:27] LABS: ALKALINE PHOSPHATASE 142 u/l (38-126); BILIRUBIN, TOTAL 0.7 mg/dL (0.0-1.4); BUN 18 mg/dL (8-23); BUN/CREATININE RATIO 20 (12-20 (CALC)); CARBON DIOXIDE 31 mmol/l (22-30); CREATININE 0.9 mg/dL (0.5-1.0); GFR 60 ML/MIN (>=60 (CALC)); GFR FOR AFR.AMER. > 60 ML/MIN (>=60 (CALC)); POTASSIUM 4.5 mmol/l (3.5-5.1); SGOT/AST 37 u/l (9-36)
[2018-05-23 20:29] LABS: ANION GAP 15 (6-22 (CALC))
[2018-05-23 20:30] LABS: ALBUMIN 3.4 g/dL (3.2-5.0); CHLORIDE 93 mmol/l (95-108); SODIUM 134 mmol/l (137-146); TOTAL PROTEIN 6.8 g/dL (6.3-8.2)
[2018-05-23 20:36] LABS: INTERNATIONAL NORMALIZED RATIO 1.1 RATIO (0.7-1.3); PROTHROMBIN TIME 11.7 SECONDS (9.0-12.5)
[2018-05-23 20:39] LABS: MYOGLOBIN 52 ng/mL (0 - 62)
[2018-05-23 21:51] LABS: URINE BILIRUBIN - DIPSTICK NEGATIVE (NEGATIVE); URINE BLOOD DIPSTICK NEGATIVE (NEGATIVE); URINE COLOR YELLOW; URINE GLUCOSE - DIPSTICK NEGATIVE (NEGATIVE); URINE KETONE NEGATIVE (NEGATIVE); URINE LEUK ESTERASE NEGATIVE (NEGATIVE); URINE NITRITE - DIPSTICK NEGATIVE (Negative); URINE PROTEIN - DIPSTICK NEGATIVE (NEG-TRACE); URINE UROBILINOGEN - DIPSTICK 0.2 E.U./dL (0.2)
[2018-05-23] MEDS ORDERED: PREDNISONE5 MG PO (23:05)
[2018-05-23] MEDS ORDERED: PRESERVISION PO (23:07)
[2018-05-23] MEDS ORDERED: LYRICA50 MG PO (23:10)
[2018-05-23] MEDS ORDERED: NORCO1 TA1 PO (23:10)
[2018-05-23] MEDS ORDERED: TIZANIDINE HCL2 M1 PO (23:11)
[2018-05-24 01:50] VITALS: BP 124/63
[2018-05-24 04:19] VITALS: BP 121/66
[2018-05-24 09:23] VITALS: BP 140/63
[2018-05-24 11:15] LABS: HEMATOCRIT 30.9 % (37.0-47.0); HEMOGLOBIN 9.5 g/dl (12.0-16.0); IMMATURE GRANULOCYTES 0.4 % (0.0-5.0); MEAN CELL VOLUME 107.7 fL CALC (80.0-100.0); MEAN CORPUSCULAR HGB 33.1 pG CALC (26.0-32.0); MEAN CORPUSCULAR HGB CONC 30.7 g/L CALC (32.0-36.0); NEUT# 6.85 thou/uL (2.00-7.15); RED BLOOD COUNT 2.87 mill/uL (4.20-5.60); RED CELL DISTRI WIDTH 13.2 % (11.5-15.5)
[2018-05-24 11:37] LABS: ANION GAP 10 (6-22 (CALC)); BUN 16 mg/dL (8-23); BUN/CREATININE RATIO 18 (12-20 (CALC)); CARBON DIOXIDE 31 mmol/l (22-30); CHLORIDE 98 mmol/l (95-108); CREATININE 0.9 mg/dL (0.5-1.0); GFR 60 ML/MIN (>=60 (CALC)); GFR FOR AFR.AMER. > 60 ML/MIN (>=60 (CALC)); POTASSIUM 4.2 mmol/l (3.5-5.1); SODIUM 134 mmol/l (137-146)
[2018-05-24 17:00] VITALS: BP 130/60
[2018-05-24 19:20] VITALS: BP 129/58
[2018-05-24 23:35] VITALS: BP 151/71
[2018-05-25] VITALS (7 sets, daily range): BP systolic 147–177; BP diastolic 67–88
[2018-05-25 05:46] LABS: HEMATOCRIT 35.6 % (37.0-47.0); IMMATURE GRANULOCYTES 0.5 % (0.0-5.0); MEAN CELL VOLUME 109.5 fL CALC (80.0-100.0); MEAN CORPUSCULAR HGB 33.8 pG CALC (26.0-32.0); MEAN CORPUSCULAR HGB CONC 30.9 g/L CALC (32.0-36.0); NEUT# 8.31 thou/uL (2.00-7.15); RED BLOOD COUNT 3.25 mill/uL (4.20-5.60); RED CELL DISTRI WIDTH 13.2 % (11.5-15.5)
[2018-05-25 06:09] LABS: ALBUMIN 2.9 g/dL (3.2-5.0); ALKALINE PHOSPHATASE 127 u/l (38-126); AMYLASE 63 u/l (30-110); BILIRUBIN, TOTAL 0.3 mg/dL (0.0-1.4); BUN 15 mg/dL (8-23); BUN/CREATININE RATIO 17 (12-20 (CALC)); CARBON DIOXIDE 29 mmol/l (22-30); CREATININE 0.9 mg/dL (0.5-1.0); GFR 60 ML/MIN (>=60 (CALC)); GFR FOR AFR.AMER. > 60 ML/MIN (>=60 (CALC)); LIPASE 106 u/l (23-300); MAGNESIUM 1.8 mg/dL (1.6-2.3); POTASSIUM 4.6 mmol/l (3.5-5.1); SGOT/AST 31 u/l (9-36); SODIUM 136 mmol/l (137-146); TOTAL PROTEIN 5.9 g/dL (6.3-8.2)
[2018-05-25 06:11] LABS: ANION GAP 13 (6-22 (CALC)); CHLORIDE 99 mmol/l (95-108)
[2018-05-26 03:50] VITALS: BP 154/78
[2018-05-26 05:11] LABS: HEMOGLOBIN 10.1 g/dl (12.0-16.0); IMMATURE GRANULOCYTES 0.4 % (0.0-5.0); MEAN CELL VOLUME 109.6 fL CALC (80.0-100.0); MEAN CORPUSCULAR HGB 33.6 pG CALC (26.0-32.0); MEAN CORPUSCULAR HGB CONC 30.6 g/L CALC (32.0-36.0); NEUT# 6.33 thou/uL (2.00-7.15); RED BLOOD COUNT 3.01 mill/uL (4.20-5.60); RED CELL DISTRI WIDTH 13.3 % (11.5-15.5)
[2018-05-26 05:32] LABS: ALBUMIN 2.6 g/dL (3.2-5.0); ALKALINE PHOSPHATASE 116 u/l (38-126); ANION GAP 12 (6-22 (CALC)); BILIRUBIN, TOTAL 0.3 mg/dL (0.0-1.4); BUN 14 mg/dL (8-23); BUN/CREATININE RATIO 17 (12-20 (CALC)); CARBON DIOXIDE 30 mmol/l (22-30); CHLORIDE 100 mmol/l (95-108); CREATININE 0.8 mg/dL (0.5-1.0); GFR > 60 ML/MIN (>=60 (CALC)); GFR FOR AFR.AMER. > 60 ML/MIN (>=60 (CALC)); MAGNESIUM 1.8 mg/dL (1.6-2.3); POTASSIUM 4.1 mmol/l (3.5-5.1); SGOT/AST 31 u/l (9-36); SODIUM 138 mmol/l (137-146); TOTAL PROTEIN 5.5 g/dL (6.3-8.2)
[2018-05-26 08:59] VITALS: BP 135/65
[2018-05-26 11:00] VITALS: BP 166/76
[2018-05-26 15:15] VITALS: BP 153/67
[2018-05-26 19:10] VITALS: BP 110/56
[2018-05-26 23:35] VITALS: BP 154/72
[2018-05-27 04:15] VITALS: BP 150/78
[2018-05-27 09:04] VITALS: BP 142/65
[2018-05-27 11:13] VITALS: BP 145/62
[2018-05-27 15:24] VITALS: BP 149/60
[2018-05-27 19:13] VITALS: BP 137/69
[2018-05-28 04:36] VITALS: BP 154/71
[2018-05-28 08:49] VITALS: BP 161/59
[2018-05-28 11:19] VITALS: BP 157/75
[2018-05-28 15:30] VITALS: BP 129/68
[2018-05-28 20:45] VITALS: BP 127/56
[2018-05-28 23:45] VITALS: BP 157/70
[2018-05-29 04:30] VITALS: BP 150/79
[2018-05-29 09:26] VITALS: BP 141/52
[2018-05-29 11:40] VITALS: BP 153/62
[2018-05-29] MEDS ORDERED: DOXYCYCL HYC100 MG PO (14:04)
== END 2018-05-29 16:04 | disposition home health service (06) | DRG 193 ==
LOC: ED 18:56 → ED-I 05-24 → ED 05-24 00:29 → MS2 05-24 00:30
PROVIDERS: Emergency Medicine; ADMIT Internal Medicine Nephrology; ATTEND Internal Medicine Nephrology
DX: J18.9 Pneumonia, unspecified organism (principal); E43 Unspecified severe protein-calorie malnutrition; J44.1 Chronic obstructive pulmonary disease with (acute) exacerbation; Z68.1 Body mass index [BMI] 19.9 or less, adult; J44.0 Chronic obstructive pulmonary disease with (acute) lower respiratory infection; I10 Essential (primary) hypertension; I48.2 Chronic atrial fibrillation; F17.210 Nicotine dependence, cigarettes, uncomplicated; K21.9 Gastro-esophageal reflux disease without esophagitis; M19.90 Unspecified osteoarthritis, unspecified site; G62.9 Polyneuropathy, unspecified; F41.8 Other specified anxiety disorders; E55.9 Vitamin D deficiency, unspecified; M48.54XD Collapsed vertebra, not elsewhere classified, thoracic region, subsequent encounter for fracture with routine healing; K08.409 Partial loss of teeth, unspecified cause, unspecified class; Z95.0 Presence of cardiac pacemaker; Z79.01 Long term (current) use of anticoagulants; Z79.891 Long term (current) use of opiate analgesic; Z85.528 Personal history of other malignant neoplasm of kidney; Z88.8 Allergy status to other drugs, medicaments and biological substances
CPT/HCPCS: J3370

== ENCOUNTER 2018-05-30 16:17 | Inpatient (IN) | payer MEDICARE, OTHER ==
[~2018-05-30] VITALS: Ht 170.2 cm; Wt 47.0 kg
[~2018-05-30 16:17] MED LIST changes: +LYRICA50 MG PO; +NORCO1 TA1 PO; +PREDNISONE5 MG PO; +PRESERVISION PO; +TIZANIDINE HCL2 M1 PO
--- NOTE | 2018-05-30 16:17 | NUR ---
PT IMMEDIATELY TO TX ROOM VIA WC FOR BEDISIDE TRIAGE
--- NOTE | 2018-05-30 16:20 | NUR ---
PATIENT REPORTS SOB STARTING TODAY, WAS DISCHARGED FROM HOSPITAL ON 05/29/18 WAS TREATED FOR PNEUMONIA, STATES SWELLING TO BILATERAL HANDS AND FEET SINCE BEING IN HOSPITAL. CRACKLES NOTED TO RIGHT LUNG, CLEAR LUNG SOUNDS NOTED TO LEFT LUNG. RT PAGED FOR BREATHING TREATMENT FOR O2 SAT OF 90% ON ROOM AIR. DENIES BEING ON HOME O2, DOES TAKE BREATHING TREATMENTS AT HOME, TOOK ONE EARLIER TODAY. SON AT BEDSIDE.
--- NOTE | 2018-05-30 17:00 | NUR ---
MOD AMOUNT OF EDEMA NOTED TO BILATERAL FEET. NO CHANGE IN LUNG SOUNDS AFTER BREATHING TREATMENT. PATIENT REPORTS IMPROVEMENT IN BREATHING.
[2018-05-30 17:11] LABS: HEMATOCRIT 37.1 % (37.0-47.0); HEMOGLOBIN 11.5 g/dl (12.0-16.0); IMMATURE GRANULOCYTES 0.5 % (0.0-5.0); MEAN CELL VOLUME 107.8 fL CALC (80.0-100.0); MEAN CORPUSCULAR HGB 33.4 pG CALC (26.0-32.0); NEUT# 8.92 thou/uL (2.00-7.15); RED BLOOD COUNT 3.44 mill/uL (4.20-5.60); RED CELL DISTRI WIDTH 13.5 % (11.5-15.5)
[2018-05-30 17:30] LABS: ALBUMIN 3.7 g/dL (3.2-5.0); ALKALINE PHOSPHATASE 121 u/l (38-126); ANION GAP 13 (6-22 (CALC)); BILIRUBIN, TOTAL 0.4 mg/dL (0.0-1.4); BUN 33 mg/dL (8-23); BUN/CREATININE RATIO 34 (12-20 (CALC)); CARBON DIOXIDE 32 mmol/l (22-30); CHLORIDE 95 mmol/l (95-108); GFR 53 ML/MIN (>=60 (CALC)); GFR FOR AFR.AMER. > 60 ML/MIN (>=60 (CALC)); POTASSIUM 4.2 mmol/l (3.5-5.1); SGOT/AST 51 u/l (9-36); SODIUM 136 mmol/l (137-146)
--- NOTE | 2018-05-30 17:57 | NUR ---
INFORMED OF PATIENT O2 SAT OF 89% ON ROOM AIR. RT PAGED FOR ABG AND ADDITIONAL BREATHING TREATMENT.
--- NOTE | 2018-05-30 18:51 | NUR ---
REPORT CALLED TO PRASAD BAILON. INFORMED OF PATIENT STATUS, WAITING ON FLOOR ORDERS. REPORT GIVEN TO PRASAD GALINDO. CARE RELINQUISHED. PATIENT IN STABLE CONDIITON.
--- NOTE | 2018-05-30 19:38 | NUR ---
PT TRANSPORTED TO [place] VIA STRETCHER BY NURSE FANTA IN STABLE CONDITION
--- NOTE | 2018-05-30 19:39 | NUR ---
PT ARRIVED TO FLOOR VIA STRETCHER ACCOMPANIED BY ER NURSE. PT AMULATED TO BED. ALERT AND ORIENTED. RESPIRATIONS LABORED/SHALLOW. LUNGS SOUND COARSE. 1+ EDEMA NOTED BILATERALLY IN THE FEET. #IV 18 LAC, INFUSING VANCO @ 125 ML/HR, APPEARS HEALTHY. ATTACHED CARTWRIGHT BAG TO UROSTOMY BAG, DRAINING TO GRAVITY, PT ORIENTED TO ROOM AND CALL DUNCAN SYSTEM. PROVIDED BLANKETS AND ICE CREAM PER PT REQUEST. SAFETY PRECAUTIONS IN PLACE. WILL CONTINUE TO MONITOR.
[2018-05-30 19:50] VITALS: BP 166/74
--- NOTE | 2018-05-31 00:15 | NUR ---
PT SLEEPING IN BED. RESPIRATIONS SHALLOW ON O2 VIA NC @ 2L. NO SIGNS OR SYMPTOMS OF DISTRESS. CALL LIGHT WITHIN REACH WILL CONTINUE TO MONITOR.
[2018-05-31 03:53] VITALS: BP 148/74
--- NOTE | 2018-05-31 04:00 | NUR ---
PT SLEEPING IN BED NO SIGNS OR SYMPTOMS OF DISTRESS. SAFETY PRECAUIONS IN PLACE, WILL CONTINUE TO MONITOR.
--- NOTE | 2018-05-31 07:18 | NUR ---
PT SLEEPING IN BED. NO SIGNS OR SYMPTOMS OF DISTRESS. SAFETY PRECAUTIONS IN PLACE WILL CONTINUE TO MONITOR.
--- NOTE | 2018-05-31 07:41 | NUR ---
PT RESTING IN BED NO SIGNS OR SYMPTOMS OF DISTRESS. SAFETY PRECAUTIONS IN PLACE. CALL LIGHT WITHIN REACH. WILL CONTINUE TO MONINTOR.
--- NOTE | 2018-05-31 08:17 | NUR ---
PT RESTING IN BED AT THIS TIME. REPOSITIONED X2 PERSON ASSIST. PT C/O BACK AND NECK PAIN 8-10. PT REFUSED PRN PAIN MEDICATIONS AND OTHER PAIN RELIEVING INTERVENTIONS. CALL LIGHT WITHIN REACH. WILL CONTINUE TO MONITOR.
--- NOTE | 2018-05-31 10:15 | NUR ---
PT SITTING UP IN BED TALKING ON THE PHONE; RESP EVEN AND UNLABORED; 02@2L NC; LUNGS CLEAR; ABD FLAT, HYPO BOWEL SOUND; RAIDAL PULSES STRONG; PEDAL PULSE WEAK; BANDAGE NOTED TO L KNEE, INTACT; UROSTOMY DRAING TO GRAVITY CLEAR, YELLOW URINE; #18 LAC, FLUSHED FREELY, SITE APPEARS HEALTHY; MEDICATED PER EMAR; VOICE NO PAIN OR CONCERNS; CALL DUNCAN IN REACH;
--- NOTE | 2018-05-31 11:35 | NUR ---
PT SITTING UP IN BED; ZOSYN INFUSING, SITE APPEARS HEALTHY; FAMILY MEMBE AT BEDSIDE; VOICE NO CONCERNS; CALL DUNCAN IN REACH.
--- NOTE | 2018-05-31 13:02 | NUR ---
DR HERRERA AT BEDSIDE TO DISCUSS POC
--- NOTE | 2018-05-31 16:45 | NUR ---
PT SITTING UP IN BED, FAMILY MEMBER AT BEDSIDE; RESP EVEN AND UNLBORED; NO S/S OF DISTRESS NOTED.
[2018-05-31 17:13] VITALS: BP 136/67
[2018-05-31 19:00] VITALS: BP 132/63
--- NOTE | 2018-05-31 21:34 | NUR ---
PT RESTING IN BED, ALERT AND ORIENTED. ASSESSMENT COMPLETED. RESPIRATIONS EVEN AND UNLABORED, ON O2 VIA NC @ 2L. IV # 18 LAC, PATENT. PT REPORTS HAVING A BURNING PAIN IN THE TOP OF HER RIGHT FOOT THAT COMES AND GOES, FROM NEUROPATHY, PT STATES SHE DOESNT WANT ANYTHING FOR THE PAIN. PT ASKING FOR XANAX FOR SLEEP INFORMED PT THAT THIS DESK DIRECTOR WOULD CALL THE DOCTOR FOR ORDERS. SAFETY PRECAUTIONS IN PLACE. WILL CONTINUE TO MONITOR.
--- NOTE | 2018-05-31 23:59 | NUR ---
PT RESTING IN BED. ZOSYN INFUSING THROUGH IV # 18 LAC. PT MEDICATED WITH XANAX FOR SLEEP PER EMAR ORDERS. PT DENIES ANY NEEDS AT THIS TIME WILL CONTINUE TO MONITOR. CALL LIGHT WITHIN REACH. WILL CONTINUE TO MONITOR.
--- NOTE | 2018-06-01 04:31 | NUR ---
PT RESTING IN BUT ALERT AND ORIENTED. PT DENIES ANY NEEDS. SAFETY PRECAUTIONS IN PLACE. WILL CONTINUE TO MONITOR.
[2018-06-01 04:45] VITALS: BP 136/77
[2018-06-01 05:48] LABS: IMMATURE GRANULOCYTES 0.5 % (0.0-5.0); MEAN CELL VOLUME 105.7 fL CALC (80.0-100.0); MEAN CORPUSCULAR HGB 34.1 pG CALC (26.0-32.0); MEAN CORPUSCULAR HGB CONC 32.2 g/L CALC (32.0-36.0); NEUT# 7.47 thou/uL (2.00-7.15); RED BLOOD COUNT 2.79 mill/uL (4.20-5.60); RED CELL DISTRI WIDTH 13.3 % (11.5-15.5)
[2018-06-01 05:50] LABS: HEMATOCRIT 29.5 % (37.0-47.0); HEMOGLOBIN 9.5 g/dl (12.0-16.0)
[2018-06-01 06:14] LABS: ALKALINE PHOSPHATASE 80 u/l (38-126); AMYLASE 61 u/l (30-110); ANION GAP 10 (6-22 (CALC)); BILIRUBIN, TOTAL 0.4 mg/dL (0.0-1.4); BUN 29 mg/dL (8-23); BUN/CREATININE RATIO 30 (12-20 (CALC)); CARBON DIOXIDE 33 mmol/l (22-30); CHLORIDE 96 mmol/l (95-108); GFR 53 ML/MIN (>=60 (CALC)); GFR FOR AFR.AMER. > 60 ML/MIN (>=60 (CALC)); LIPASE 85 u/l (23-300); MAGNESIUM 1.6 mg/dL (1.6-2.3); POTASSIUM 4.1 mmol/l (3.5-5.1); SGOT/AST 26 u/l (9-36); SODIUM 135 mmol/l (137-146)
[2018-06-01 06:18] LABS: ALBUMIN 2.6 g/dL (3.2-5.0); TOTAL PROTEIN 5.2 g/dL (6.3-8.2)
[2018-06-01 09:20] VITALS: BP 156/71
--- NOTE | 2018-06-01 09:20 | NUR ---
PT SITTING ON BSC, NO SIGNS OF DISTRESS NOTED, RESP EVEN AND UNLABORED. PT ON 02 2L NC, DISCUSS POC. ASSESSMENT COMPLETED, VSS. CALL LIGHT IN REACH,CONTINUE TO MONITOR.
--- NOTE | 2018-06-01 12:43 | NUR ---
NEW IV SITE OBTAINED, IV ZOSYN INITIATED. CALL LIGHT IN REACH,CONTINUE TO MONITOR.
[2018-06-01 16:00] VITALS: BP 131/66
[2018-06-01 19:00] VITALS: BP 155/70
--- NOTE | 2018-06-01 19:15 | NUR ---
REPORT FROM RASHAD DE LA ROSA. ALERT AND ORIENTED. PT SITTING UP IN BED. O2 @2L/M VIA NC. NO RESPIRATORY DISTRESS NOTED. PT DENIES ANY PAIN OR DISCOMFORT. IV SITE APPEARS HEALTHY. EDUCATED PT ON SAFETY PRECAUTIONS. CALL LIGHT WITHIN REACH. WILL CONTINUE TO MONITOR.
--- NOTE | 2018-06-02 00:10 | NUR ---
PT RESTING IN BED WITH EYES CLOSED. EASLY AROUSED. IV FLUSHED EASILY, IVT ABT INFUSING WITHOUT DIFFICULTY AT THIS TIME. PROVIDED GOWN CHANGE PT SWEATING. CURRENT TEMP 96.9 PT STATES SHE SWEATS AT NIGHT. PT DENIES ANY PAIN OR SOB. 02 @ 2L/M REMAINS IN PLACE. CALL LIGHT WITHIN REACH. WILL CONTINUE TO MONITOR.
[2018-06-02 04:40] VITALS: BP 145/75
--- NOTE | 2018-06-02 04:55 | NUR ---
PT RESTING IN BED WITH EYES CLOSED. NO S/S OF PAIN OR DISCOMFORT NOTED. CALL LIGHT WITHIN REACH. WILL CONTINUE TO MONITOR.
[2018-06-02 06:12] LABS: HEMATOCRIT 30.7 % (37.0-47.0); HEMOGLOBIN 9.7 g/dl (12.0-16.0); IMMATURE GRANULOCYTES 0.3 % (0.0-5.0); MEAN CELL VOLUME 105.9 fL CALC (80.0-100.0); MEAN CORPUSCULAR HGB 33.4 pG CALC (26.0-32.0); MEAN CORPUSCULAR HGB CONC 31.6 g/L CALC (32.0-36.0); NEUT# 6.92 thou/uL (2.00-7.15); RED BLOOD COUNT 2.9 mill/uL (4.20-5.60); RED CELL DISTRI WIDTH 13.4 % (11.5-15.5)
[2018-06-02 06:22] LABS: ALBUMIN 2.6 g/dL (3.2-5.0); ALKALINE PHOSPHATASE 77 u/l (38-126); ANION GAP 13 (6-22 (CALC)); BILIRUBIN, TOTAL 0.3 mg/dL (0.0-1.4); BUN 30 mg/dL (8-23); BUN/CREATININE RATIO 29 (12-20 (CALC)); CARBON DIOXIDE 31 mmol/l (22-30); CHLORIDE 94 mmol/l (95-108); GFR 53 ML/MIN (>=60 (CALC)); GFR FOR AFR.AMER. > 60 ML/MIN (>=60 (CALC)); MAGNESIUM 1.6 mg/dL (1.6-2.3); POTASSIUM 4.2 mmol/l (3.5-5.1); SGOT/AST 29 u/l (9-36); SODIUM 134 mmol/l (137-146); TOTAL PROTEIN 5.2 g/dL (6.3-8.2)
[2018-06-02 07:57] VITALS: BP 148/75
--- NOTE | 2018-06-02 08:00 | NUR ---
REPORT RECEIVED FROM KRISTI. ASSESSMENT DONE. PT IS A&O X3. PT STATED PAIN 7/10 IN NECK BUT DENIES PAIN MEDICATION AT THIS TIME. #22 LFA THAT APPEAR HEALTHY. UROSTOMY/CARTWRIGHT IS PATENT WITH YELLOW URINE. LUNGS SOUND DIMINISHED. PT DENIES ANY NEEDS AT THIS TIME. SAFETY PRECAUTIONS REINFROCED AND CALL LIGHT IN REACH.
--- NOTE | 2018-06-02 10:00 | NUR ---
PT IS SITTING IN CHAIR. CHANGE HER UROSTOMY BAG DUE TO IT WAS LEAKING. PT TOLERATED WELL. PT DENEIS ANY OTHER NEEDS AT THIS TIME. CALL LIGHT IN REACH.
--- NOTE | 2018-06-02 12:00 | NUR ---
PT RESTING IN BED. STATED PAIN IN NECK 10/24 BUT REFUSED PAIN MEDICATION. WARM PACK APPLIED TO NECK. PT DENIES ANY OTHER NEEDS AT THIS TIME. CALL LIGHT IN REACH.
[2018-06-02 16:03] VITALS: BP 155/71
--- NOTE | 2018-06-02 16:06 | NUR ---
PT IS SITTING IN CHAIR VISITING WITH SON IN ROOM. PT STATED PAIN IN NECK 10/24 BUT REFUSED PAIN MEDICATION. WARM PACK APPLIED TO NECK. PT DENIES ANY OTHER NEEDS AT THIS TIME. CALL LIGHT IN REACH.
--- NOTE | 2018-06-02 19:00 | NUR ---
RECEIVED REPORT FROM DAY NURSE. PT RESTING IN BED WITH EYES CLOSED, WAKES TO VERBAL STIMULI. NO NEEDS AT THIS TIME. CALL DUNCAN IN REACH. WILL CONTINUE TO MONITOR.
[2018-06-02 20:35] VITALS: BP 144/71
--- NOTE | 2018-06-02 21:00 | NUR ---
PT RESTING QUIETLY IN BED WITH EYES CLOSED, WAKES TO VERBAL STIMULI. ASSESMENT COMPLETED AT THIS TIME( SEE INTERVENTIONS) LUNG SOUNDS DIMINISHED, HEART SOUNDS NORMAL, BOWEL SOUNDS ACTIVE, NO EDEMA. IV FLUSHES WELL. NO NEEDS AT THIS TIME. CALL DUNCAN IN REACH. WILL CONTINUE TO MONITOR.
--- NOTE | 2018-06-03 | NUR ---
PT WAKES TO VERBAL STIMULI. NO NEEDS AT THIS TIME. IV MEDS HUNG ORDERED. CALL DUNCAN IN REACH. WILL CONTINUE TO MONITOR.
[2018-06-03 00:17] VITALS: BP 129/61
[2018-06-03 04:00] VITALS: BP 154/80
--- NOTE | 2018-06-03 04:00 | NUR ---
PT RESTING IN BED WITH EYES CLOSED. NO S/S OF DISTRESS NOTED. UROSTOMY DRAINING TO GRAVITY. CALL DUNCAN IN REACH. WILL CONTINUE TO MONITOR.
[2018-06-03 05:07] LABS: ANION GAP 11 (6-22 (CALC)); BUN 33 mg/dL (8-23); BUN/CREATININE RATIO 33 (12-20 (CALC)); CARBON DIOXIDE 30 mmol/l (22-30); CHLORIDE 95 mmol/l (95-108); GFR 53 ML/MIN (>=60 (CALC)); GFR FOR AFR.AMER. > 60 ML/MIN (>=60 (CALC)); MAGNESIUM 1.7 mg/dL (1.6-2.3); SODIUM 133 mmol/l (137-146)
[2018-06-03 05:13] LABS: HEMATOCRIT 30.7 % (37.0-47.0); HEMOGLOBIN 9.9 g/dl (12.0-16.0); MEAN CELL VOLUME 104.8 fL CALC (80.0-100.0); MEAN CORPUSCULAR HGB 33.8 pG CALC (26.0-32.0); MEAN CORPUSCULAR HGB CONC 32.2 g/L CALC (32.0-36.0); RED BLOOD COUNT 2.93 mill/uL (4.20-5.60); RED CELL DISTRI WIDTH 13.7 % (11.5-15.5)
--- NOTE | 2018-06-03 07:00 | NUR ---
RECEIVED PT AWAKE AND ALERT. INTRODUCTIONS MADE. PLAN OF CARE DISCUSSED. DENIES ANY NEEDS AT THIS TIME.
[2018-06-03 08:00] VITALS: BP 160/80
--- NOTE | 2018-06-03 08:09 | NUR ---
PT ASSISSTED WITH COMPLETE BATH BY COMPUTER SALESPERSON RETAIL AND BACK TO BED. PT DOES NOT WAN TO SIT IN RECLINER AT THIS TIME. FULL ASSESSMENT COMPLETE. SEE SHIFT REVIEW. DENIES ANY COMPLAINTS AT THIS TIME. CALL LIGHT WITHIN REACH.
--- NOTE | 2018-06-03 08:30 | NUR ---
SHIFT REVIEW COMPLETE, SEE SHIFT REVIEW FOR COMPLETE ASSESSMENT, ENMA BREATH SOUNDS DIMINSHED IN BASES. PT DENIES ANY NEEDS. GEREMIAS PAIN OR SHORTNESS OF BREATH. WILL CONTINUE TO MONITOR.
--- NOTE | 2018-06-03 09:00 | NUR ---
AM MEDS GIVEN AND TOLERATED WELL. PT TAKES ONE AT AT TIME IN APPLE SAUCE.
--- NOTE | 2018-06-03 12:16 | NUR ---
PT SET UP WITH LUNCH TRAY. IN RECLINER CHAIR AT BEDSIDE. DENIES ANY NEEDS OR COMPLAINTS.
--- NOTE | 2018-06-03 14:00 | NUR ---
DR CLARIBEL BAEZ AT THIS TIME. DISCUSSED PLAN OF CARE WITH PATIENT.
[2018-06-03 15:55] VITALS: BP 137/71
--- NOTE | 2018-06-03 16:23 | NUR ---
PT IN BED. DENIES ANY NEEDS.
--- NOTE | 2018-06-03 19:00 | NUR ---
RECEIVED REPORT FROM DAY NURSE.PT RESTING QUIETLY IN BED WATCHING TV. NO NEEDS AT THIS TIME. CALL DUNCAN IN REACH. WILL CONTINUE TO MONITOR.
[2018-06-03 19:45] VITALS: BP 144/76
--- NOTE | 2018-06-03 21:07 | NUR ---
PT RESTING QUIETLY IN BED EATING A SNACK. PT IS A&O x3. ASSESMENT COMPLETED AT THIS TIME(SEE INTERVENTIONS). LUNG SOUNDS DIMINISHED, BOWEL SOUNDS ACTIVE, HEART SOUNDS NORMAL, NO SWELL OR EDEMA. PT IS VERY FRAILE AND HAS BRUSING TO ARMS. IV FLUSHES WELL. NO SWELLING OR EDEMA NOTED. NEEDS MET AND CALL DUNCAN IN REACH. WILL CONTINUE TO MONITOR.
--- NOTE | 2018-06-04 | NUR ---
PT RESTING IN BED WITH EYES CLOSED. WAKES TO VERBAL STIMULI. IV MEDS HUNG ORDERED. NO NEEDS AT THIS TIME. CALL DUNCAN IN REACH. WILL CONTINUE TO MONITOR.
--- NOTE | 2018-06-04 04:00 | NUR ---
PT RESTING QUIETLY IN BED. NO S/S OF DISTRESS NOTED. CALL DUNCAN IN REACH. WILL CONTINUE TO MONITOR.
[2018-06-04 04:30] VITALS: BP 161/85
--- NOTE | 2018-06-04 07:25 | NUR ---
REPORT RECEIVED FROM NIGHT NURSE; PT SITTING UP IN BED AWAKE, ALERT; RESP EVEN AND UNLABORED; VOICE NO CONCERNS; WILL CONTINUE TO MONITOR.
[2018-06-04 09:55] VITALS: BP 155/79
--- NOTE | 2018-06-04 10:05 | NUR ---
PT SITTING UP IN BED WATCHING TV; AM MEDS ADMINISTERED WITH APPLE SAUCE; TEOLERATED WELL; RESP EVEN AND UNLABORED; ACIVE BS; CARTWRIGHT PATENT DRAINING TO GRAVITY; DENIES ANY PAIN; IV FLUSHIED WITHOUT DIFFICULTY, SITE APPEARS HEALTHY; CALL DUNCAN IN REACH; WILL CONTINUE TO MONITOR.
--- NOTE | 2018-06-04 11:54 | NUR ---
DR HERRERA AT BEDSIDE TO DISCUSS POC; PT SITTING UP IN BED EATING LUNCH AND WATCHING TV; CARTWRIGHT PATENT CLEAR, YELLOW URINE; NO S/S OF DISTRESS NOTED;
--- NOTE | 2018-06-04 16:03 | NUR ---
PT SITTING IN BED HAVING A BREATHING TREATMENT; STATED FEELS BETTER SINCE TAKEN ZOFRAN; RESP EVEN AND UNLABORED ON ROOM AIR; CARTWRIGHT PATENT DRAINING CLEAR YELLOW URINE; NO S/S OF DISTRESS NOTED; CALL DUNCAN IN REACH.
[2018-06-04 16:05] VITALS: BP 144/81
--- NOTE | 2018-06-04 19:00 | NUR ---
RECEIVED REPORT FROM DAY SHIFT NURSE. PT RESTING IN BED WATCHING TV. NO NEEDS AT THIS TIME. CALL DUNCAN IN REACH. WILL CONTINUE TO MONITOR
[2018-06-04 19:30] VITALS: BP 138/67
--- NOTE | 2018-06-04 20:30 | NUR ---
PT RESTING QUIETLY IN BED WATCHING TV. PT IS A&0 x3 ASSESMENT COMPLETED AT THIS TIME(SEE INTERVENTION) LUNG SOUNDS DIMINISHED WITH WHEEZES IN THE BASES, HEART SOUNDS NORMAL, BS HYPO ACTIVE, NO SWELLING OR EDEMA NOTED.NO NEEDS AT HTIS TIME. CALL DUNCAN IN REACH. WILL CONTINUE TO MONITOR.
--- NOTE | 2018-06-05 | NUR ---
PT IV MEDS HUNG ORDERED. NO NEEDS AT THIS TIME. UROSTOMY DRAINING TO GRAVITY. CALL DUNCAN IN REACH. WILL CONTINUE TO MONITOR.
--- NOTE | 2018-06-05 04:00 | NUR ---
PT RESTING QUIETLY IN BED NO S/S OF DISTRESS NOTED. CALL DUNCAN IN REACH. WILL CONTINUE TO MONITOR.
[2018-06-05 04:46] VITALS: BP 158/82
[2018-06-05 06:09] LABS: HEMATOCRIT 31.1 % (37.0-47.0); HEMOGLOBIN 10.2 g/dl (12.0-16.0); IMMATURE GRANULOCYTES 0.6 % (0.0-5.0); MEAN CORPUSCULAR HGB 34.1 pG CALC (26.0-32.0); MEAN CORPUSCULAR HGB CONC 32.8 g/L CALC (32.0-36.0); NEUT# 6.35 thou/uL (2.00-7.15); RED BLOOD COUNT 2.99 mill/uL (4.20-5.60); RED CELL DISTRI WIDTH 14.1 % (11.5-15.5)
[2018-06-05 06:11] LABS: ALBUMIN 2.8 g/dL (3.2-5.0); BILIRUBIN, TOTAL 0.4 mg/dL (0.0-1.4); CREATININE 1.2 mg/dL (0.5-1.0); MAGNESIUM 1.8 mg/dL (1.6-2.3); POTASSIUM 4.1 mmol/l (3.5-5.1); TOTAL PROTEIN 5.4 g/dL (6.3-8.2)
[2018-06-05 07:45] VITALS: BP 149/68
--- NOTE | 2018-06-05 07:45 | NUR ---
ASSESSMENT IS COMPLETED: IV SITE IS FREE FROM REDNESS OR EDEMA. HR IS REG, PULSES ARE STRONG X4,ABD IS SOFT WITH ACTIVE BS. BREATH SOUNDS ARE CLEAR IN UPPER AND MIDDLE WITH SOME SLIGHTLY SCATTERED WHEEZES IN LOWER . CARTWRIGHT DRAINING YELLOW URINE. CALL DUNCAN WITHIN REACH. CONTINUE TO OBSERVE AND MONITOR.
--- NOTE | 2018-06-05 10:51 | NUR ---
Pt seen for gait and mobility this am. She was resting in bed, c/o being tried. Pt moved supine to and from sit with supervision only. She ambulated 1x60' and 1x30 with 4WW and SBA/CGA. 02 sat at rest 98% after first walk 87% and 99% after second walk. Pt return to supine with call sosa/phone and tray in reach. Non skid socks and gait belt in place during treatment.
--- NOTE | 2018-06-05 12:15 | NUR ---
PT IS RELAXING IN BED WITH NO DISTRESS NOTED. IV SITE SITE REMAINS FREE FROM REDNESS OR EDEMA.
[2018-06-05 15:12] VITALS: BP 118/63
--- NOTE | 2018-06-05 16:00 | NUR ---
PT IS RELAXING IN BED WITH NO DISTRESS NOTED. IV SITE IS FREE FROM REDNESS OR EDEMA.
--- NOTE | 2018-06-05 19:28 | NUR ---
REPORT RECIEVED FROM RJ RICHARDS. PT RESTING IN BED. PT DENIES ANY PAIN OR DISCOMFORT. WILL CONTINUE TO MONITOR.
[2018-06-05 19:30] VITALS: BP 137/70
--- NOTE | 2018-06-05 19:53 | NUR ---
PT RESTING IN BED WATCHING TV. ALERT AND ORIENTED. PT DENIES ANY PAIN OR DISCOMFORT. RESPIRATIONS SHALLOW ON RA, LUNGS SOUND DIMINISHED. UROSTOMY INTACT DRAININNG TO GRAVITY INTO CARTWRIGHT BAG. IV #22 LAC, APPEARS HEALTHY. SAFETY PRECAUTIONS IN PLACE. WILL CONTINUE TO MONITOR.
--- NOTE | 2018-06-06 00:12 | NUR ---
PT RESTING IN BED. ZOSYN HUNG AND INFUSIN AT 100 ML/HR THROUGH 22 LAC, PT TOLERATING WELL. WILL CONTINUE TO MONITOR.
[2018-06-06 04:00] VITALS: BP 160/97
--- NOTE | 2018-06-06 04:17 | NUR ---
PT RESTING IN BED. RESPIRATIONS SHALLOW ON RA. NO SIGNS OR SYMPTOMS OF DISTRESS. SAFETY PRECAUTIONS IN PLACE. WILL CONTINUE TO MONITOR.
[2018-06-06 06:20] LABS: HEMATOCRIT 32.6 % (37.0-47.0); HEMOGLOBIN 10.5 g/dl (12.0-16.0); IMMATURE GRANULOCYTES 0.4 % (0.0-5.0); MEAN CELL VOLUME 104.8 fL CALC (80.0-100.0); MEAN CORPUSCULAR HGB 33.8 pG CALC (26.0-32.0); MEAN CORPUSCULAR HGB CONC 32.2 g/L CALC (32.0-36.0); NEUT# 6.39 thou/uL (2.00-7.15); RED BLOOD COUNT 3.11 mill/uL (4.20-5.60); RED CELL DISTRI WIDTH 14.3 % (11.5-15.5)
[2018-06-06 06:36] LABS: ALBUMIN 2.9 g/dL (3.2-5.0); BILIRUBIN, TOTAL 0.4 mg/dL (0.0-1.4); CREATININE 1.2 mg/dL (0.5-1.0); MAGNESIUM 1.9 mg/dL (1.6-2.3); POTASSIUM 4.4 mmol/l (3.5-5.1); TOTAL PROTEIN 5.3 g/dL (6.3-8.2)
--- NOTE | 2018-06-06 07:30 | NUR ---
REPORT RECEIVED FROM PRASAD BAILON. PT SITTING UPRIGHT IN BED. DENIES PAIN. NO SOB. REPORTS FEELING BETTER. CALL LIGHT REVIEWED AND IN REACH. PLAN OF CARE DISCUSSED. FALL PRECAUTIONS REINFORCED. PT STATES UNDERSTANDING.
[2018-06-06 08:30] VITALS: BP 169/75
[2018-06-06 09:19] VITALS: BP 169/75
--- NOTE | 2018-06-06 12:22 | NUR ---
DR. HERRERA IN TO SEE PT. DISCHARGE HOME DISCUSSED ADN AGREED UPON.
[2018-06-06] MEDS ORDERED: LEVAQUIN500 MG PO (13:33)
[2018-06-06] MEDS ORDERED: MEDDOSEPAK PO (13:34)
[2018-06-06] MEDS ORDERED: ZOFRAN ODT4 MG PO (13:36)
--- NOTE | 2018-06-06 14:09 | NUR ---
1355-PT IV removed at this time. No erythema at injection site. PT tolerated well.Castañeda bag that was added to urostomy was removed at this time and urostomy clamped back.Pt in bed stable with call light and phone at bedside. Will continue to monitor.
== END 2018-06-06 15:01 | disposition home health service (06) | DRG 193 ==
LOC: ED 16:17 → ED-I 18:07 → ED 18:26 → MS2 18:27
PROVIDERS: Emergency Medicine; Internal Medicine Nephrology; Nurse Practitioner Family; ADMIT Internal Medicine; ATTEND Internal Medicine
DX: J18.9 Pneumonia, unspecified organism (principal); E43 Unspecified severe protein-calorie malnutrition; J44.1 Chronic obstructive pulmonary disease with (acute) exacerbation; Z68.1 Body mass index [BMI] 19.9 or less, adult; J44.0 Chronic obstructive pulmonary disease with (acute) lower respiratory infection; I12.9 Hypertensive chronic kidney disease with stage 1 through stage 4 chronic kidney disease, or unspecified chronic kidney disease; N18.3 Chronic kidney disease, stage 3 (moderate); I48.2 Chronic atrial fibrillation; F17.200 Nicotine dependence, unspecified, uncomplicated; F41.1 Generalized anxiety disorder; K21.9 Gastro-esophageal reflux disease without esophagitis; M19.90 Unspecified osteoarthritis, unspecified site; Y95 Nosocomial condition; Z90.5 Acquired absence of kidney; Z85.528 Personal history of other malignant neoplasm of kidney; Z79.01 Long term (current) use of anticoagulants; Z85.42 Personal history of malignant neoplasm of other parts of uterus; Z95.0 Presence of cardiac pacemaker
CPT/HCPCS: G0378; J0692

== ENCOUNTER 2019-03-25 09:53 | Emergency (ER) | payer MEDICARE, OTHER ==
[~2019-03-25] VITALS: Ht 170.2 cm; Wt 43.6 kg
[~2019-03-25 09:53] MED LIST changes: +LEVAQUIN500 MG PO; +MEDDOSEPAK PO; +ZOFRAN ODT4 MG PO
[2019-03-25] MEDS ORDERED: LYRICA75 MG PO (10:27)
[2019-03-25] MEDS ORDERED: HYDROCO/APAP1 TA9 PO (10:28)
[2019-03-25 10:49] LABS: HEMATOCRIT 34.3 % (37.0-47.0); HEMOGLOBIN 10.3 g/dl (12.0-16.0); IMMATURE GRANULOCYTES 0.2 % (0.0-5.0); MEAN CORPUSCULAR HGB 33.7 pG CALC (26.0-32.0); NEUT# 6.73 thou/uL (2.00-7.15); RED BLOOD COUNT 3.06 mill/uL (4.20-5.60); RED CELL DISTRI WIDTH 13.6 % (11.5-15.5)
[2019-03-25 11:03] LABS: MEAN CELL VOLUME 112.1 fL CALC (80.0-100.0)
[2019-03-25 11:08] LABS: CREATININE 1.7 mg/dL (0.5-1.0); MAGNESIUM 1.8 mg/dL (1.6-2.3)
[2019-03-25 11:14] LABS: ALBUMIN 3.7 g/dL (3.2-5.0); BILIRUBIN, TOTAL 0.6 mg/dL (0.0-1.4); TOTAL PROTEIN 6.8 g/dL (6.3-8.2)
[2019-03-25 11:39] LABS: TSH, 3RD GENERATION 2.07 uIU/mL (0.47 - 4.68)
[2019-03-25 15:57] VITALS: BP 105/56
== END 2019-03-25 15:57 ==
LOC: ED 09:53
DX: I21.4 Non-ST elevation (NSTEMI) myocardial infarction (principal); J18.9 Pneumonia, unspecified organism; J44.1 Chronic obstructive pulmonary disease with (acute) exacerbation; J44.0 Chronic obstructive pulmonary disease with (acute) lower respiratory infection; R09.02 Hypoxemia; I10 Essential (primary) hypertension; I48.91 Unspecified atrial fibrillation; Z95.0 Presence of cardiac pacemaker; Z90.5 Acquired absence of kidney; R42 Dizziness and giddiness

== ENCOUNTER 2019-04-25 | Emergency (ER) | payer MEDICARE, OTHER ==
[~2019-04-25] MED LIST changes: +HYDROCO/APAP1 TA9 PO; +LYRICA75 MG PO
[2019-04-25 19:50] LABS: HEMATOCRIT 31.4 % (37.0-47.0); HEMOGLOBIN 9.6 g/dl (12.0-16.0); IMMATURE GRANULOCYTES 0.2 % (0.0-5.0); MEAN CELL VOLUME 107.9 fL CALC (80.0-100.0); MEAN CORPUSCULAR HGB CONC 30.6 g/L CALC (32.0-36.0); NEUT# 3.91 thou/uL (2.00-7.15); RED BLOOD COUNT 2.91 mill/uL (4.20-5.60); RED CELL DISTRI WIDTH 13.7 % (11.5-15.5)
[2019-04-25 20:00] LABS: ACT PARTIAL THROMBO TIME 38.4 SECONDS (20.0-32.5); INTERNATIONAL NORMALIZED RATIO 1.1 RATIO (0.7-1.3); PROTHROMBIN TIME 11.4 SECONDS (9.0-12.5)
== END 2019-04-25 21:55 | disposition home or self-care (01) ==
DX: L76.21 Postprocedural hemorrhage of skin and subcutaneous tissue following a dermatologic procedure (principal); L89.159 Pressure ulcer of sacral region, unspecified stage; I10 Essential (primary) hypertension; J44.9 Chronic obstructive pulmonary disease, unspecified; I48.91 Unspecified atrial fibrillation; Y83.8 Other surgical procedures as the cause of abnormal reaction of the patient, or of later complication, without mention of misadventure at the time of the procedure; Z95.0 Presence of cardiac pacemaker; L89.150 Pressure ulcer of sacral region, unstageable; B95.61 Methicillin susceptible Staphylococcus aureus infection as the cause of diseases classified elsewhere; R64 Cachexia; D50.9 Iron deficiency anemia, unspecified; E44.0 Moderate protein-calorie malnutrition
CPT/HCPCS: A6199